=== PATIENT | female | born 1975 | race Caucasian/White ===

== ENCOUNTER 2016-07-21 14:42 | Emergency (ER) | payer OTHER ==
--- NOTE | 2016-07-21 15:00 | ERNOTE ---
Psychological HPI - Date Date of Service: 07/21/16 - General Chief Complaint: Anxiety Source: Reports: patient Exam Limitations: Reports: no limitations - Immun/Allergies/Home Medications Allergies/Adverse Reactions: Allergies No Known Allergies Allergy (Verified 07/21/16 14:54) Home Medications: HOME MEDICATIONS busPIRone HCL [Buspar] 5 mg PO BID 07/21/16 [Last Taken Unknown] - History of Present Illness Narrative: HX OF ANXIETY WITH PALPITATION , (FAST HEART RATE ON WAY TO WORK). she pulled over to the side of the road. she was wearing fitbit and it read 140/min . she did not check her pulse so can not say if there was irregularity. NO HX OF CARDIAC PROBLEMS. HAS BEEN ON BUSPAR FOR 4-5 WEEKS. DENIES OTHER MEDS AND IS NOT DRINKER AND DOES NOT USE DRUGS. SHE TAKES NO OTHER MEDS. HER DAD HAS HX OF A FIB AND HAD ABLATION. SHE HAS 3 SISTERS WITHOUT CARDIAC PROBLEMS. SHE CAN THINK OF NOTHING THAT PRECIPITATED THE EVENT AND SHE SAYS IT ONLY LASTED A COUPLE OF MINUTES. SHE IS FINE NOW. Time Seen by Provider: 07/21/16 14:55 Review of Systems - Review of Systems Constitutional: Present: See HPI EYE: Present: no symptoms reported ENT: Present: no symptoms reported Respiratory: Present: no symptoms reported Cardiology: Present: palpitations Psych: Present: anxiety All Other Systems: All systems neg except as marked - Patient's Past Medical History Patient History - Medical: Anxiety Patient History - Cardiac/Respiratory: No pertinent hx Patient History - Cancer: No Hx of Cancer Patient History - Surgical Procedures: Patient History - Other: None LMP (females 10-50): this week - Social History Living Situations: spouse Abuse History: No History of abuse Psych History: Hx of Anxiety Smoking Status: Current some day smoker Have you smoked in the past 12 months: Yes Do you dip or chew tobacco: No Alcohol Use: none Drug Use: none - Immunizations Immunizations Up to Date: No - unsure Hx Pneumococcal Vaccination: No History of Influenza Vaccine: No Physical Exam - Physical Exam General Appearance: Present: wd/wn, alert, no apparent distress Neck: Present: normal inspection Respiratory: Present: no respiratory distress, normal breath sounds, no accessory muscle use, chest nontender, lungs clear Cardiovascular/Chest: Present: regular rate, rhythm, no murmur, normal peripheral pulses Peripheral Pulses: N=norm/S=strong/W=weak/B=bound/A=absent: Radial (R): Normal, Radial (L): Normal Neurological Exam: Present: alert, oriented, normal mood/affect Skin Exam: Present: normal color ED Progress - Results and Orders Patient's Lab Results:: I have reviewed the patient's lab results. Results and Orders: LABS ARE NORMAL - Vital Signs Patient's Vital Signs:: I have reviewed the patient's vital signs. Vital Signs: Vital Signs 07/21/16 14:46 Temperature 37.5 C Pulse Rate 103 H Respiratory 18 Rate Blood Pressure 193/91 O2 Sat by Pulse 98 Oximetry - EKG EKG: NSR - HR = 94 , ? KHLOE EKG read: Interp. by me - Progress/Reassessment Chief Complaint: Anxiety Progress:: Improved Progress Note-Subjective: 07/21/16 18:01 PT WATCHED FOR 2 HOURS AND HAS ONLY SHOWN NSR WITH HEART RATE ABOUT 80, RECENT BP = 126/85 AND RR = 16. Plan - Plan Plan: I SUSPECT SHE JUST HAD AN ANXIETY ATTACK BUT IT IS POSSIBLE SHE HAD AN EPISODE OF A FIB OR PSVT. AND SHOULD F/U WITH PCP TO DISCUSS FURTHER EVALUATION. Departure Clinical Impression: Heart palpitations, Anxiety - Departure Condition: Good Instructions: Palpitations, [id number], Panic Attacks, [id number] Additional Instructions: CALL YOUR FAMILY DR AND LET HER KNOW YOU WERE SEEN HERE FOR RAPID HEART RATE THAT WAS SHORT LIVED. WITH NEGATIVE ER EVALUATION AND TO DISCUSS IF FURTHER EVALUATION IS NEEDED. CONTINUE THE BUSPAR BEFORE. Referrals: Lotus Ortiz MD [Primary Care Provider] -
[2016-07-21 15:15] LABS: Hematocrit 40.2 % (37.0-47.0); Mean Corpuscular Hemoglobin 29.6 pg (27-31); Mean Corpuscular Hgb Conc 34.8 g/dl (32-36); Mean Platelet Volume 9.9 fl (6.0-9.5); Neutrophil # 5.5 K/mm3 (1.3-6.0); Neutrophil % 66.7 % (42-75.0); Platelet Count 353 K/mm3 (150-450); Red Blood Count 4.73 M/mm3 (4.2-5.4); Red Cell Distribution Width 12.9 % (11.5-14.0); White Blood Count 8.2 K/mm3 (4.0-10.5)
[2016-07-21 15:35] LABS: Anion Gap 17.9 mmol/L (6.8-13.8); BUN/Creatinine Ratio 14.1 (9.0-21.6); Calcium * 8.7 mg/dL (7.9-10.9); Carbon Dioxide 20.9 mmol/L (24-32.6); Estimated Creat Clear 82.4; Potassium 3.8 mmol/L (3.4-4.6); TSH * 1.368 uIU/mL (0.358-3.74)
[2016-07-21 18:26] VITALS: BP 122/84
== END 2016-07-21 18:17 | disposition home or self-care (01) ==
LOC: ER 14:42
DX: R00.2 Palpitations (principal); F41.9 Anxiety disorder, unspecified